=== PATIENT | male | born 1950 | race Caucasian/White ===

== ENCOUNTER → 2019-03-01 | Outpatient (CLI) | payer MEDICARE, BC ==
[~2019-03-01] MED LIST: AMLO5TAB6 PO; ASPI81TA85 PO; ATOR80TA59 PO; PLAV1TAB2 PO
[2019-03-01 09:29] LABS: HEMATOCRIT 44.6 % (42.0-52.0); HEMOGLOBIN 14.8 g/dl (13.5-17.5); MEAN CORPUSCULAR HEMOGLOBIN 31.9 pg (27.0-33.0); MEAN CORPUSCULAR HGB CONC 33.2 g/dl (32.0-36.5); MEAN CORPUSCULAR VOLUME 96.1 fl (80.0-96.0); PLATELET COUNT, AUTOMATED 190 10^3/uL (150-450); RED BLOOD COUNT 4.64 10^6/uL (4.30-6.10); WHITE BLOOD COUNT 7.1 10^3/uL (4.0-10.0)
[2019-03-01 09:40] LABS: INR 0.92; PROTHROMBIN TIME 12.5 SECONDS (12.1-14.4)
[2019-03-01 09:51] LABS: ERYTHROCYTE SEDIMENTATION RATE 8 mm/hr (0-20)
--- NOTE | 2019-03-01 10:09 | REP ---
Chest two views HISTORY: Preop Comparison: None The lungs are clear. The heart is normal in size. The pulmonary vasculature is normal in appearance. The bony structure is intact. IMPRESSION: No acute disease. Electronically Signed by Aplhonso Arnett MD 03/01/2019 10:01 A
[2019-03-01 10:10] LABS: CALCIUM LEVEL 8.4 MG/DL (8.8-10.2); CREATININE FOR GFR 1.86 MG/DL (0.70-1.30); GLOMERULAR FILTRATION RATE 38.5 (>49); POTASSIUM SERUM 4.8 MEQ/L (3.5-5.1)
[2019-03-01 10:11] LABS: ALBUMIN 3.8 GM/DL (3.2-5.2); BILIRUBIN,TOTAL 0.8 MG/DL (0.2-1.0); TOTAL PROTEIN 7.7 GM/DL (6.4-8.2)
--- NOTE | 2019-03-02 09:34 | ECGEPIP ---
[facility] Test Date: 2019-03-01 Pat Name: JANET VENEGAS Department: Room: - Gender: Male Emergency Medcl Emt: RENATO : 1950 Requested By: Reynaldo Potts Order Number: [id number] Reading MD: Arnoldo Willett Measurements Intervals [place] Rate: 62 P: 57 NE: 174 QRS: 64 QRSD: 104 T: QT: 401 QTc: 408 Interpretive Statements SINUS RHYTHM WITH SINUS ARRHYTHMIA INFERIOR MYOCARDIAL INFARCTION, OF INDETERMINATE AGE No prior ECG available for comparison at the time of interpretation. Electronically Signed on 03-02-2019 9:34:18 EDT by Arnoldo Willett
== END ==
LOC: M LAB 08:36
PROVIDERS: ATTEND Orthopaedic Surgery
DX: M17.11 Unilateral primary osteoarthritis, right knee (principal); Z01.812 Encounter for preprocedural laboratory examination; I21.19 ST elevation (STEMI) myocardial infarction involving other coronary artery of inferior wall

== ENCOUNTER 2019-03-21 08:29 | Inpatient (IN) | payer MEDICARE, BC ==
--- NOTE | 2019-03-16 10:48 | HPE ---
DATE OF ADMISSION: 03/21/2019 CHIEF COMPLAINT: Right knee pain. HISTORY OF PRESENT ILLNESS: Judah is a pleasant 69-year-old male with progressively worsening right knee pain and stiffness. He has failed to improve with conservative treatment. He has elected for surgery for his continued symptoms. He has pain with weightbearing activities and his activities of daily living. X-rays of his knee are notable for advanced osteoarthritis of the right knee joint. He has consented for a right total knee arthroplasty by Dr. Reynaldo Potts. Medical optimization was performed by Dr. Burden. ALLERGIES: None. CURRENT MEDICATIONS: - atorvastatin 8 mg - metoprolol 25 mg - baby aspirin once a day - clopidogrel 75 mg a day PAST MEDICAL HISTORY: Includes high cholesterol and history of heart attack. PAST SURGICAL HISTORY: Includes kidney removal and surgery for his previous heart attack. SOCIAL HISTORY: This gentleman is retired. He does smoke a pack a day. Does not drink. FAMILY HISTORY: Noncontributory. REVIEW OF SYSTEMS: This patient denies chest pain, heart palpitations, cough, wheezing, difficulty breathing and shortness of breath. He denies abdominal pain, nausea, vomiting, diarrhea or constipation. He denies recent upper respiratory infection or urinary tract infection symptoms. He does complain of persistent pain in the right knee and pain with weightbearing activities in the right knee. PHYSICAL EXAMINATION: General: He is well-nourished, well-developed in no acute distress, alert male patient. He walks with a mild limp favoring the right lower extremity. He is not using assistive devices. Vital signs: He is 70-3/4 inches tall, weighs 199.6 pounds, temperature of 97.6, blood pressure 136/84, pulse of 52 and respirations of 16. Neck was supple without adenopathy or jugular venous distension. Lungs were clear to auscultation without rales or wheeze. Heart: Regular rate and rhythm. Abdomen: Bowel sounds were present. Extremities: Examination of the knee revealed intact skin. He had decreased range of motion due to pain and stiffness. The leg was neurovascularly intact. LABORATORY DATA: Chest x-ray showed no acute cardiopulmonary disease processes. Electrocardiogram (EKG) showed regular sinus rhythm, old inferior wall myocardial infarction. Echo done 02/24/2019 showed mild to moderate mitral valve regurgitation with ejection fraction of 50-60%. Protime 12.5, INR 0.92. CBC showed MCV of 96.1, otherwise within normal limits. Sed rate was 8, glucose 107, BUN 21, creatinine 1.86 for a GFR of 38.5. IMPRESSION: Symptomatic osteoarthritis of the right knee joint. PLAN: Consented for a right total knee arthroplasty by Dr. Reynaldo Potts.
[~2019-03-21] VITALS: Ht 177.8 cm; Wt 89.4 kg
[~2019-03-21 08:29] MED LIST changes: +LIDOCAINE 1% MDV 20ML VIAL SQ PRN; +LR 1,000 ML IV ONE
[2019-03-21] MEDS ORDERED: ONDANSETRON 4MG/2ML VIAL (J2405) As Ordered ONE (08:53)
[2019-03-21] MEDS ORDERED: PROPOFOL 200 MG/20 ML VIAL As Ordered ONE (08:53)
[2019-03-21] MEDS ORDERED: MIDAZOLAM INJ 2 MG/2 ML VIAL (J2250) As Ordered ONE ×2 (08:53→10:36)
[2019-03-21] MEDS ORDERED: LIDOCAINE 2% INJ 100 MG/5 ML SDV (FOR ANES.) As Ordered ONE (08:53)
[2019-03-21] MEDS ORDERED: fentaNYL 100 MCG/2 ML INJECTION (J3010) As Ordered ONE ×2 (08:53→10:36)
[2019-03-21] MEDS ORDERED: TRANEXAMIC ACID 100 MG/ML 10ML VIAL As Ordered ONE (09:41)
--- NOTE | 2019-03-21 09:41 | IPN ---
DATE: 03/21/2019 The patient seen and examined. He wished to go ahead with a right total knee arthroplasty. He understands the nature of this, the risks of bleeding, infection, damage to nerves and vessels, persistent pain, wear, loosening, blood clots, medical problems, , among others. A preop clearance was obtained.
[2019-03-21] MEDS ORDERED: EPINEPHrine INJ 1 MG/ML 1ML AMP As Ordered ONE (09:42)
[2019-03-21] MEDS ORDERED: ceFAZolin 1GM INJ (J0690 PER 500MG) As Ordered ONE (09:42)
[2019-03-21] MEDS ORDERED: BUPIVACAINE LIPOSOME/PF 1.3% 20ML VIAL (13.3MG/ML)(EXPAREL)(C9290 PER1MG) As Ordered ONE (09:42)
[2019-03-21] MEDS ORDERED: dexameTHASONE 10 MG/1 ML VIAL PRES.FREE (J1100) ONE (11:27)
[2019-03-21] MEDS ORDERED: ROPIvacaine 0.5% 30 ML INJECTION (J2795 PER 1MG) ONE (11:27)
[2019-03-21] MEDS ORDERED: LIDOCAINE 1% MDV 20ML VIAL ONE (11:27)
[2019-03-21] MEDS ORDERED: fentaNYL 100 MCG/2 ML INJECTION (J3010) IV ONE (11:30)
[2019-03-21] MEDS ORDERED: ePHEDrine SULFATE 25 MG/5 ML(5MG/ML) SYRINGE As Ordered ONE (11:36)
[2019-03-21] MEDS ORDERED: MIDAZOLAM INJ 2 MG/2 ML VIAL (J2250) IV ONE (12:00)
[2019-03-21] MEDS ORDERED: PERCOCET 5MG/325MG TAB PO PRN (13:00)
[2019-03-21] MEDS ORDERED: LR 1,000 ML IV SCH ×2 (13:00)
[2019-03-21] MEDS ORDERED: fentaNYL 100 MCG/2 ML INJECTION (J3010) IV PRN (13:00)
[2019-03-21] MEDS ORDERED: ONDANSETRON 4MG/2ML VIAL (J2405) IV PRN ×2 (13:00→13:15)
[2019-03-21] MEDS ORDERED: HYDROMORPHONE HCL 0.5 MG/ 0.5 ML SYRINGE (J1170 PER 1) IV PRN (13:00)
--- NOTE | 2019-03-21 13:05 | REP ---
Right knee: Two views. History: Postop evaluation. No comparison images. Findings: AP and lateral views of the right knee obtained portably document that the patient is status post right knee arthroplasty. Arthroplasty components are well aligned. Periarticular an intra-articular soft tissue emphysema is seen. Anterior skin renea are noted. Impression: Status post right knee arthroplasty. Electronically Signed by Maninder Call MD 03/21/2019 12:56 P
[2019-03-21] MEDS ORDERED: FLEET ENEMA PR PRN (13:15)
[2019-03-21] MEDS ORDERED: MORPHINE 4 MG/ML 1ML VIAL/SYRINGE (J2270) IV PRN ×2 (13:15)
[2019-03-21] MEDS ORDERED: ACETAMINOPHEN TAB 650MG DOSE (2X325MG) PO PRN (13:15)
[2019-03-21] MEDS: PERCOCET 5MG/325MG TAB PO PRN ×2 (14:07→20:16)
--- NOTE | 2019-03-21 16:43 | CR.PDOC ---
General Date of Consultation: Mar 21, 2019 Referring Provider: A Consultation REASON FOR CONSULTATION/CHIEF COMPLAINT: Management of medical comorbidities. HISTORY OF PRESENT ILLNESS: . 69-year-old male with past medical history of dyslipidemia, HTN, coronary artery disease, and chronic kidney disease stage III was admitted to the orthopedic surgery service for right knee replacement. The hospitalist service has been co nsulted to optimize the patient's medical comorbidity management. At this time, the patient denies any acute complaints of SOB, chest pain, palpitations, abdominal pain, or any N/V/D. ALLERGIES: Please see below. HOME MEDICATIONS: Please see below. PAST MEDICAL HISTORY: As noted above SOCIAL HISTORY: Smokes a pack of tobacco per day. Denies any alcohol or illicit drug use. REVIEW OF SYSTEMS: 10 point review of systems negative unless otherwise specified HPI. PHYSICAL EXAMINATION: VITAL SIGNS: Please see below. GENERAL APPEARANCE: . Awake, Alert, in no acute distress HEENT: . Normocephalic, atraumatic RESPIRATORY: . Clear to auscultation bilaterally CARDIOVASCULAR: . Normal rate, normal S1, S2 ABDOMEN: . Soft, nontender, nondistended EXTREMITIES: . Right knee noted to be wrapped in surgical dressing. Range of motion limited secondary to recent surgical intervention. Neurovascularly intact distally. LABORATORY DATA: Please see below. ASSESSMENT/PLAN: s/p Right Knee Replacement Perioperative Mgmt as per primary service Hx of CAD ASA, and Plavix on hold 2/2 above Hypertension Continue Norvasc Dyslipidemia Continue statin History of chronic kidney disease stage III Will repeat labs in the AM DVT prophylaxis on Xarelto as per Ortho Vital Signs/I&O Vital Signs Date Time Temp Pulse Resp B/P (MAP) Pulse Ox O2 Delivery O2 Flow Rate FiO2 03/21/19 15:59 97.7 58 16 117/56 (76) 98 03/21/19 10:50 4 Allergies Coded Allergies: No Known Allergies (Unverified , 03/21/19) Home Medications Scheduled Amlodipine Besylate (Amlodipine Besylate) 5 Mg Tablet, 5 MG PO QHS, (Reported) Aspirin (Aspir 81) 81 Mg Tablet.dr, 81 MG PO DAILY, #30 (Reported) Atorvastatin Calcium (Atorvastatin Calcium) 80 Mg Tablet, 80 MG PO DAILY, (Reported) Clopidogrel Bisulfate (Plavix) 75 Mg Tablet, 75 MG PO DAILY, (Reported) JAMES ARREDONDO MD Mar 21, 2019 16:43
[2019-03-21 18:51] VITALS: BP 128/65
[2019-03-21 20:00] VITALS: BP 127/65
[2019-03-21] MEDS: ATORVASTATIN 20 MG TAB PO SCH (20:15)
[2019-03-21] MEDS: amLODIPine 5 MG TAB PO SCH (20:16)
[2019-03-21 21:00] VITALS: BP 107/51
[2019-03-21 22:00] VITALS: BP 117/59
[2019-03-22 02:00] VITALS: BP 125/60
[2019-03-22] MEDS: PERCOCET 5MG/325MG TAB PO PRN ×4 (05:01→20:43)
[2019-03-22 06:00] VITALS: BP 114/51
[2019-03-22 06:32] LABS: HEMATOCRIT 37.8 % (42.0-52.0); HEMOGLOBIN 12.5 g/dl (13.5-17.5); MEAN CORPUSCULAR HGB CONC 33.1 g/dl (32.0-36.5); MEAN CORPUSCULAR VOLUME 96.7 fl (80.0-96.0); PLATELET COUNT, AUTOMATED 169 10^3/uL (150-450); RED BLOOD COUNT 3.91 10^6/uL (4.30-6.10)
[2019-03-22 07:04] LABS: CALCIUM LEVEL 8.3 MG/DL (8.8-10.2); CREATININE FOR GFR 1.87 MG/DL (0.70-1.30); GLOMERULAR FILTRATION RATE 38.3 (>49)
--- NOTE | 2019-03-22 07:48 | RO ---
DATE OF PROCEDURE: 03/21/2019 PREOPERATIVE DIAGNOSIS: Right knee osteoarthritis. POSTOPERATIVE DIAGNOSIS: Right knee osteoarthritis. PROCEDURE: Right total knee arthroplasty using an ATTUNE rotating platform cruciate retaining size 6 femur, size 6 tibia, 8 polyethylene, 35 patellar button. SURGEON: Reynaldo Potts MD BIOLOGY MANAGER: Johnny Moe PA-C ANESTHESIA: Spinal. ESTIMATED BLOOD LOSS: Less than 50 mL. COMPLICATIONS: None. INDICATIONS: 69-year-old gentleman who has had gradually worsening knee pain and wished to go ahead with a knee replacement. He understood the nature and risks associated with it. PROCEDURE: Patient was taken to the operating room, placed in the supine position after spinal anesthesia was induced. The right lower extremity was prepped and draped in the usual sterile fashion. A time out was performed. A longitudinal incision was made over the anterior aspect of the knee. A curvilinear incision was made over the medial patella and everted the patella, used the canal initiating reamer followed by the intramedullary reamer on the femoral side set at 9 mm and 5 degrees of valgus. This was pinned in place and distal femoral cut was made by the construction administrative assistant under my direct supervision. I sized the femur to be a 6. The drill holes were placed in the end of the femur with the external rotation dialed in and the cutting block was placed. The remaining four cuts were then made. We then directed our attention to the tibia. The tibial alignment guide was placed, appropriate amount of valgus and posterior slope and the proximal tibia cut was made, removing the bone and protecting soft tissue. We then did the sulcus cut on the femur. The wax room supervisor was then used to remove soft tissue and osteophytes from either side of the knee. The spacer blocks were used to determine the approximate size of the polyethylene and thickness and a size 8 was anticipated. We then prepared the tibia. We drilled, broached, and placed the trial components, put the knee through a range of motion and was very pleased with the size 8 polyethylene, size 6 femur and tibia. Freehand cut the patella removing about 7 mm of bone, sized to be a 35, and drill holes were placed in the femur and the patella. Removed all of the trial components, irrigated copiously, the Exparel solution was placed in the deep tissues. Dried the bony surfaces, cemented on the tibial tray, placed the polyethyelene, cemented on the femoral component, removed all excess bone cement, cemented on the patella, held this in place with a patella clamp and removed excess bone cement. TXA solution was placed in the deep tissues. The wound was irrigated as it had been multiple times prior to this. We had copiously irrigated and dried prior to cementing. The deep layer was closed with interrupted #1 Vicryl suture and running STRATAFIX suture, obtaining a water tight closure. I put the knee through range of motion and the patella tracked quite nicely. Subcu was closed #2-0 Vicryl, skin with renea. Sterile dressing was applied. Tourniquet was deflated and he was taken to the recovery room in stable condition. There were no known complications. The plan will be routine postop. The construction administrative assistant was instrumental in holding retractors and mixing the bone cement, assisting in wound closure and assisting in retracting.
[2019-03-22] MEDS: MIRALAX *UNIT DOSE* 17GM PACKET PO SCH (09:23)
[2019-03-22] MEDS: MOM 30ML SUSPENSION UDC PO SCH (09:23)
[2019-03-22 14:00] VITALS: BP 110/59
[2019-03-22] MEDS: RIVAROXABAN 10 MG TAB (XARELTO) PO SCH (17:51)
[2019-03-22 18:00] VITALS: BP 116/48
--- NOTE | 2019-03-22 19:59 | IPNPDOC ---
Text Note Date of Service The patient was seen on 03/22/19. NOTE Subjective: Mr. Zamudio is postop day #1 from a right total knee arthroplasty for osteoarthritis. He is doing well. Objective:Patient has a MAXIMUM TEMPERATURE of 100.3. Systolic blood pressures range from 110 and 116. O2 sats are 93-97% on room air. HENT: Neck is supple. He does not have adenopathy. Cardiovascular: Regular rate and rhythm with a normal S1 and S2. I do not really appreciate a murmur. Respiratory: Good air movement and clear to auscultation. Abdomen: Soft, nondistended, nontender, bowel tones present. Extremities: right knee site is intact without drainage Assessment/plan: This is a 69-year-old male who is postoperative day #1. Right total knee arthrop lasty. He is doing well. He has adequate pain control. He is on anticoagulation with Xarelto. We are anticipating he'll be able to discharge to home tomorrow. We will continue to follow for any acute medical problems. VS,Neemae, I+O VS, Lora, I+O Laboratory Tests 03/22/19 06:03 Red Blood Count 3.91 L, Mean Corpuscular Volume 96.7 H, Mean Corpuscular Hemoglobin 32.0, Mean Corpuscular Hemoglobin Concent 33.1, Red Cell Distribution Width 13.0, Calcium Level 8.3 L Vital Signs Date Time Temp Pulse Resp B/P (MAP) Pulse Ox O2 Delivery O2 Flow Rate FiO2 03/22/19 18:00 100.3 84 17 116/48 (70) 93 03/21/19 10:50 4 I&O- Last 24 Hours up to 6 AM 03/22/19 05:59 Intake Total 1950 ml Output Total 650 ml Balance 1300 ml ROSIO SHORE MD Mar 22, 2019 19:59
[2019-03-22] MEDS: amLODIPine 5 MG TAB PO SCH (20:42)
[2019-03-22] MEDS: ATORVASTATIN 20 MG TAB PO SCH (20:42)
[2019-03-22 22:00] VITALS: BP 120/60
[2019-03-23 02:00] VITALS: BP 148/81
[2019-03-23 06:00] VITALS: BP 134/80
[2019-03-23] MEDS: PERCOCET 5MG/325MG TAB PO PRN ×3 (06:01→19:59)
[2019-03-23 07:29] LABS: HEMATOCRIT 34.8 % (42.0-52.0); HEMOGLOBIN 11.7 g/dl (13.5-17.5); MEAN CORPUSCULAR HGB CONC 33.6 g/dl (32.0-36.5); MEAN CORPUSCULAR VOLUME 95.1 fl (80.0-96.0); PLATELET COUNT, AUTOMATED 147 10^3/uL (150-450); RED BLOOD COUNT 3.66 10^6/uL (4.30-6.10); WHITE BLOOD COUNT 13.1 10^3/uL (4.0-10.0)
[2019-03-23] MEDS: MIRALAX *UNIT DOSE* 17GM PACKET PO SCH (09:00)
[2019-03-23] MEDS: MOM 30ML SUSPENSION UDC PO SCH (09:00)
[2019-03-23] MEDS ORDERED: PERC5TAB12 PO (09:03)
[2019-03-23] MEDS ORDERED: XARE10TA PO (09:03)
[2019-03-23] MEDS ORDERED: ACETAMINOPHEN 500 MG TAB PO SCH (14:00)
[2019-03-23] MEDS ORDERED: traMADol 50 MG TAB PO PRN ×2 (14:00)
[2019-03-23] MEDS ORDERED: ACETAMINOPHEN TAB 650MG DOSE (2X325MG) PO PRN (14:30)
[2019-03-23] MEDS ORDERED: PERCOCET 5MG/325MG TAB PO PRN (14:30)
[2019-03-23 14:48] VITALS: BP 133/71
--- NOTE | 2019-03-23 16:38 | IPNPDOC ---
Text Note Date of Service The patient was seen on 03/23/19. NOTE is postop day #2. Right total knee arthroplasty for osteoarthritis. He continues to do well. He has been ambulatory. He states he has been told that he will need to go to rehabilitation. Vital signs MAXIMUM TEMPERATURE of 99.4. Systolic blood pressures range from 134-148. O2 sats are 95-96% on room air. HENT: Neck is supple. He does not have adenopathy. Cardiovascular: Regular rate and rhythm with a normal S1 and S2. I do not really appreciate a murmur. Respiratory: Good air movement and clear to auscultation. Abdomen: Soft, nondistended, nontender, bowel tones present. Extremities: right knee site is intact without drainage, the knee is quite sensitive and tender to touch, Pedal pulses otherwise palpable. Assessment/Plan: This is a 69-year-old male who is postop day #2 from his right total knee arthroplasty. He is doing well, but having more pain than yesterday. He does have adequate pain control medication. He is on anticoagulation with Xarelto. He is currently awaiting a location for rehabilitation prior to transitioning to home. VS,Fishbone, I+O VS, Fishbone, I+O Laboratory Tests 03/23/19 06:54 Red Blood Count 3.66 L, Mean Corpuscular Volume 95.1, Mean Corpuscular Hemoglobin 32.0, Mean Corpuscular Hemoglobin Concent 33.6, Red Cell Distribution Width 13.1 Vital Signs Date Time Temp Pulse Resp B/P (MAP) Pulse Ox O2 Delivery O2 Flow Rate FiO2 03/23/19 14:56 18 03/23/19 06:00 99.4 78 134/80 (98) 96 03/21/19 10:50 4 I&O- Last 24 Hours up to 6 AM 03/23/19 06:00 Intake Total 910 ml Output Total 490 ml Balance 420 ml ROSIO SHORE MD Mar 23, 2019 16:38
[2019-03-23] MEDS: RIVAROXABAN 10 MG TAB (XARELTO) PO SCH (17:25)
[2019-03-23] MEDS: ATORVASTATIN 20 MG TAB PO SCH (19:57)
[2019-03-23 19:58] VITALS: BP 131/69
[2019-03-23] MEDS: amLODIPine 5 MG TAB PO SCH (19:58)
[2019-03-23] MEDS ORDERED: MORPHINE 15 MG SA TAB PO SCH (21:00)
[2019-03-23 22:00] VITALS: BP 130/69
[2019-03-24] MEDS: PERCOCET 5MG/325MG TAB PO PRN (05:26)
[2019-03-24 06:00] VITALS: BP 125/68
[2019-03-24] MEDS ORDERED: PERC5TAB12 PO (06:24)
[2019-03-24] MEDS ORDERED: MAGNESIUM CITRATE 300 ML BTL PO ONE (08:30)
[2019-03-24] MEDS: MOM 30ML SUSPENSION UDC PO SCH (08:43)
[2019-03-24] MEDS: MIRALAX *UNIT DOSE* 17GM PACKET PO SCH (08:51)
[2019-03-24 09:51] LABS: CREATININE FOR GFR 2.09 MG/DL (0.70-1.30); GLOMERULAR FILTRATION RATE 33.7 (>49); POTASSIUM SERUM 4.5 MEQ/L (3.5-5.1)
[2019-03-24 09:53] LABS: HEMATOCRIT 33.6 % (42.0-52.0); HEMOGLOBIN 11.3 g/dl (13.5-17.5); MEAN CORPUSCULAR HEMOGLOBIN 32.2 pg (27.0-33.0); MEAN CORPUSCULAR HGB CONC 33.6 g/dl (32.0-36.5); MEAN CORPUSCULAR VOLUME 95.7 fl (80.0-96.0); PLATELET COUNT, AUTOMATED 152 10^3/uL (150-450); RED BLOOD COUNT 3.51 10^6/uL (4.30-6.10); WHITE BLOOD COUNT 12.9 10^3/uL (4.0-10.0)
--- NOTE | 2019-03-24 10:31 | REP ---
Right lower extremity deep vein duplex ultrasound: The deep veins demonstrate normal compression, normal Doppler color flow and normal Doppler waveforms with respiration and augmentation from the popliteal vein to the common femoral vein. Impression: There is no right lower extremity deep vein thrombus. Electronically Signed by Yvan Bray MD 03/24/2019 10:23 A
== END 2019-03-24 12:20 | disposition home or self-care (01) | DRG 470 ==
LOC: M OR 08:29 → M MS5PR 18:30
PROVIDERS: ADMIT Orthopaedic Surgery; ATTEND Orthopaedic Surgery
PROC: 0SRC0J9 Replacement of Right Knee Joint with Synthetic Substitute, Cemented, Open Approach (ICD-10-PCS; principal; 2019-03-21 11:00)
DX: M17.11 Unilateral primary osteoarthritis, right knee (principal); Z79.899 Other long term (current) drug therapy; E78.00 Pure hypercholesterolemia, unspecified; I25.2 Old myocardial infarction; F17.200 Nicotine dependence, unspecified, uncomplicated; I25.10 Atherosclerotic heart disease of native coronary artery without angina pectoris; N18.3 Chronic kidney disease, stage 3 (moderate); I12.9 Hypertensive chronic kidney disease with stage 1 through stage 4 chronic kidney disease, or unspecified chronic kidney disease; Z79.82 Long term (current) use of aspirin

== ENCOUNTER → 2019-03-25 | Outpatient (REF) ==
[~2019-03-25] MED LIST changes: -LIDOCAINE 1% MDV 20ML VIAL SQ PRN; -LR 1,000 ML IV ONE; +PERC5TAB12 PO; +XARE10TA PO
--- NOTE | 2019-03-25 16:26 | REP ---
PA and lateral chest: Comparison is 03/01/2019. The lung anderson are clear. The cardiac size is normal. The dilma, mediastinum, and skeletal structures are unremarkable. Impression: Negative PA and lateral chest. There is no interval change. Electronically Signed by Yvan Bray MD 03/25/2019 04:17 P
== END ==
PROVIDERS: ATTEND Internal Medicine
DX: R05 Cough (principal)

== ENCOUNTER → 2019-03-29 | Outpatient (REF) | payer MEDICARE, BC ==
[2019-03-29 10:03] LABS: HEMOGLOBIN 9.5 g/dl (13.5-17.5); MEAN CORPUSCULAR HEMOGLOBIN 30.4 pg (27.0-33.0); MEAN CORPUSCULAR HGB CONC 32.8 g/dl (32.0-36.5); MEAN CORPUSCULAR VOLUME 92.9 fl (80.0-96.0); PLATELET COUNT, AUTOMATED 273 10^3/uL (150-450); RED BLOOD COUNT 3.12 10^6/uL (4.30-6.10); WHITE BLOOD COUNT 9.7 10^3/uL (4.0-10.0)
[2019-03-29 10:28] LABS: CREATININE FOR GFR 1.86 MG/DL (0.70-1.30); GLOMERULAR FILTRATION RATE 38.5 (>49); POTASSIUM SERUM 5.1 MEQ/L (3.5-5.1)
--- NOTE | 2019-03-29 13:02 | DSES ---
DATE OF ADMISSION: 03/21/2019 DATE OF DISCHARGE: 03/24/2019 DISCHARGE DIAGNOSIS: Right knee arthritis status post right total knee arthroplasty. HISTORY OF PRESENT ILLNESS: This is a 69-year-old male with progressively worsening right knee pain and stiffness. He had failed to improve with conservative treatment. He elected for surgery for his continued symptoms. PROCEDURE PERFORMED: Right total knee arthroplasty. HOSPITAL COURSE: The patient was admitted on the day of surgery and underwent right total knee arthroplasty that was without complications. The patient's hospital course was without complications as well, and he was up with physical therapy per the protocol and pain was controlled. On the day of discharge the patient was doing well. He was weightbearing as tolerated on the walker to the right lower extremity, will resume preoperative medications and diet, will use oral medications for pain control, and the patient will use Xarelto for two weeks and thromboembolic deterrent stockings (JAMEEL) stockings for 30 days for deep venous thrombosis (DVT) prophylaxis. Additionally the patient will follow up in the office in two weeks for wound check and staple removal. Please refer to the medical record for further details. cc: Reynaldo Potts MD
== END ==
PROVIDERS: ATTEND Internal Medicine
DX: Z96.659 Presence of unspecified artificial knee joint (principal)

== ENCOUNTER → 2019-04-04 | Outpatient (REF) | payer BC, MEDICARE ==
--- NOTE | 2019-04-04 16:23 | REP ---
CHEST: Single view. There is no evidence of acute infiltrate. No pleural effusion is seen. The heart is normal in size. The mediastinal silhouette is unremarkable. The visualized osseous structures are intact. IMPRESSION: No acute pulmonary disease. Electronically Signed by Yvan White MD 04/04/2019 04:27 P
== END ==
PROVIDERS: ATTEND Internal Medicine
DX: R05 Cough (principal)

== ENCOUNTER → 2019-04-05 | Outpatient (REF) | payer BC, MEDICARE ==
[2019-04-05 09:37] LABS: HEMATOCRIT 32.9 % (42.0-52.0); HEMOGLOBIN 10.5 g/dl (13.5-17.5); MEAN CORPUSCULAR HEMOGLOBIN 30.5 pg (27.0-33.0); MEAN CORPUSCULAR HGB CONC 31.9 g/dl (32.0-36.5); MEAN CORPUSCULAR VOLUME 95.6 fl (80.0-96.0); PLATELET COUNT, AUTOMATED 525 10^3/uL (150-450); RED BLOOD COUNT 3.44 10^6/uL (4.30-6.10); WHITE BLOOD COUNT 9.1 10^3/uL (4.0-10.0)
[2019-04-05 10:27] LABS: CALCIUM LEVEL 8.5 MG/DL (8.8-10.2); CREATININE FOR GFR 1.89 MG/DL (0.70-1.30); GLOMERULAR FILTRATION RATE 37.8 (>49); POTASSIUM SERUM 4.4 MEQ/L (3.5-5.1)
== END ==
PROVIDERS: ATTEND Physician Assistant
DX: Z96.651 Presence of right artificial knee joint (principal)

== ENCOUNTER → 2020-11-18 | Outpatient (CLI) | payer MEDICARE, BC ==
[~2020-11-18] MED LIST changes: +AMLO1TAB24 PO; -AMLO5TAB6 PO; -ASPI81TA85 PO; +ASPI81TA86 PO
== END ==
LOC: M LABSMTC 09:42
PROVIDERS: ATTEND Ophthalmology Retina Specialist
DX: Z01.812 Encounter for preprocedural laboratory examination (principal); Z20.822 Contact with and (suspected) exposure to COVID-19; H35.349 Macular cyst, hole, or pseudohole, unspecified eye